=== PATIENT | female | born 1940 | race Hispanic/Latino ===

== ENCOUNTER → 2017-11-30 | Outpatient (CLI) | payer OTHER ==
[~2017-11-30] MED LIST: DIATR MEGLU/DIATRIZOATE SODIUM 30 ML BOTTLE ONE; LIDOCAINE HCL 2% VISCOUS 15 ML UDCUP ONE
== END | disposition home or self-care (01) ==
LOC: RAH 10:40
PROVIDERS: ATTEND Internal Medicine Critical Care Medicine
DX: T85.598A Other mechanical complication of other gastrointestinal prosthetic devices, implants and grafts, initial encounter (principal)
CPT/HCPCS: 43752; C1769; Q9963